=== PATIENT | female | born 1990 | race Caucasian/White ===

== ENCOUNTER 2019-01-17 05:27 | Emergency (ER) | payer OTHER, MEDICAID, SELFPAY ==
[2019-01-17 05:49] VITALS: BP 115/78; PULSE 89; RESP 16; TEMP 36.7; O2SAT 95; BMI 20.1
--- NOTE | 2019-01-17 06:00 | ED.EAR ---
HPI - Ear Problem General Chief complaint: Ear Stated complaint: LEFT EAR PAIN Time Seen by Provider: 01/17/19 05:52 Source: patient Mode of arrival: ambulatory Limitations: no limitations History of Present Illness HPI Narrative: the patient is a 28-year-old female who presents with left ear pain which started around midnight. She has upper respiratory symptoms ongoing for the last 2 weeks. She did have fever of is the 103 3 days ago. No fever since. His she actually feels like her symptoms are improving except for this left ear pain. She does have some phlegm cough but denies any shortness of breath or chest pain. No sore throat. MD Complaint: ear pain Location: left ear Duration: constant Severity: moderate Related Data Previous Rx's Medication Instructions Recorded dextroamphetamine-amphetamine 15 15 mg PO BID #60 tab 12/26/18 mg tablet dextroamphetamine-amphetamine ER 30 mg PO Q DAY #30 tab 12/26/18 30 mg 24hr capsule,extend release Allergies Allergy/AdvReac Type Severity Reaction Status Date / Time banana [BANANA] Allergy Intermediate swelling Verified 09/09/18 13:38 Penicillins Allergy Verified 09/09/18 13:38 Review of Systems Review of Systems ROS Unobtainable: All systems reviewed & are unremarkable except as noted in HPI and below Constitutional Denies chills, Denies fever(s), Denies lethargy and Denies weakness ENT Ears, Nose, Mouth, and Throat: Reports as per HPI Cardiovascular Denies chest pain, Denies irregular heart rhythm, Denies lightheadedness, Denies palpitations, Denies dyspnea, Denies dyspnea on exertion and Denies orthopnea Respiratory Reports chest congestion, Denies dyspnea and Denies dyspnea on exertion Gastrointestinal Gastrointestinal: Denies abdominal pain, Denies change in bowel habits, Denies diarrhea, Denies nausea and Denies vomiting Musculoskeletal Denies back pain, Denies muscle weakness, Denies numbness and Denies tingling Integumentary/Breasts Denies pruritus, Denies erythema, Denies rash and Denies wounds Neurologic Denies numbness, Denies tingling and Denies weakness Endocrine Denies palpitations [facility] Medical History ADHD (attention deficit hyperactivity disorder) (Chronic 2011) Anemia (Resolved 2015) Surgical History Status post tonsillectomy and adenoidectomy (Chronic) Family History Father No problems noted. Mother No problems noted. Social History marital status: household members: spouse and children lives independently: Yes leisure activities: exercise (yoga) Smoking Status: Never smoker alcohol intake: current substance use type: does not use Family History Father No problems noted. Mother No problems noted. Social History marital status: household members: spouse and children lives independently: Yes leisure activities: exercise (yoga) Smoking Status: Never smoker alcohol intake: current substance use type: does not use Exam Initial Vital Signs Initial Vital Signs: Vital Signs Temperature 98.0 F 01/17/19 05:49 Pulse Rate 89 01/17/19 05:49 Respiratory Rate 16 01/17/19 05:49 Blood Pressure 115/78 01/17/19 05:49 Pulse Oximetry 95 01/17/19 05:49 GENERAL: alert well-appearing young female no acute distress HEENT: Head atraumatic,EOMI, pupils reactive, face symmetric EARS: left ear erythematous tympanic membrane nonbulging no mastoid tenderness on right ears within normal limits PHARYNX:No erythema, no tonsillar exudate, no cervical lymphadenopathy CARDIOVASCULAR: Regular rate and rhythm without murmurs, rubs or gallops. RESPIRATORY: Breath sounds equal bilaterally, no wheezes rales or rhonchi. ABDOMEN: Soft, nontender. Normoactive bowel sounds all 4 quadrants. No guarding or rebound. EXTREMITIES: Normal range of motion, no clubbing or edema. Neurovascularly intact NEUROLOGICAL: Alert and oriented x4.Normal gait and speech. SKIN: Warm, dry, no laceration, no petechiae, no rashes or lesions. Course Vital Signs - 8 hr 01/17/19 05:49 Temperature 98.0 F Pulse Rate 89 Respiratory Rate 16 Blood Pressure 115/78 Pulse Oximetry 95 Medical Decision Making [facility] Narrative Medical decision making narrative: I did recommend antibiotics for patient. However she says she had 3 antibiotics of last year for a dental infection her intestine and body does not react well to them. For prefer not to have it. We did discuss conservative treatment and possible improvement in the next 2-3 days. Also complications include worsening pain and tympanic membrane rupture. Discharge Plan Departure Patient Disposition: Home Clinical Impression: Otitis media Qualifiers: Otitis media type: serous Chronicity: acute Laterality: left Recurrence: non-recurrent Qualified Code(s): H65.02 - Acute serous otitis media, left ear Discharge Date/Time: 01/17/19 06:05 Interventions: ED Discharge Assessment Last Done: 01/17/19 06:10 Activity Restrictions/Additional Instructions: *You have been diagnosed with Left otitis media *What to do: you may require antibiotics in the next 2-3 days if you continue to have worsening pain or fever. At this time pain management only with Tylenol or ibuprofen *Continue to take medications as directed Tylenol 650 mg every 4-6 hours if needed for pain Motrin 600 mg every 6-8 hours if needed for pain *Follow up with your primary care provider in 2-3 days *Return to ER if you should have worsening pain, fever more than 100.4?, ruptured tympanic membrane(blood from ear), or any new, worsening or concerning symptoms Prescriptions: No Action dextroamphetamine-amphetamine 30 mg capsule,extended release 24hr 30 mg PO Q DAY Qty: 30 RF: 0 dextroamphetamine-amphetamine 15 mg tablet 15 mg PO BID Qty: 60 RF: 0 Referrals: Suman Samayoa MD [Primary Care Provider] -
--- NOTE | 2019-01-17 06:07 | ED_ITS ---
HPI - Ear Problem General Chief complaint: Ear Stated complaint: LEFT EAR PAIN Time Seen by Provider: 01/17/19 05:52 Source: patient Mode of arrival: ambulatory Limitations: no limitations History of Present Illness HPI Narrative: the patient is a 28-year-old female who presents with left ear pain which started around midnight. She has upper respiratory symptoms ongoing for the last 2 weeks. She did have fever of is the 103 3 days ago. No fever since. His she actually feels like her symptoms are improving except for this left ear pain. She does have some phlegm cough but denies any shortness of breath or chest pain. No sore throat. MD Complaint: ear pain Location: left ear Duration: constant Severity: moderate Related Data Previous Rx's Medication Instructions Recorded dextroamphetamine-amphetamine 15 15 mg PO BID #60 tab 12/26/18 mg tablet dextroamphetamine-amphetamine ER 30 mg PO Q DAY #30 tab 12/26/18 30 mg 24hr capsule,extend release Allergies Allergy/AdvReac Type Severity Reaction Status Date / Time banana [BANANA] Allergy Intermediate swelling Verified 09/09/18 13:38 Penicillins Allergy Verified 09/09/18 13:38 Review of Systems Review of Systems ROS Unobtainable: All systems reviewed & are unremarkable except as noted in HPI and below Constitutional Denies chills, Denies fever(s), Denies lethargy and Denies weakness ENT Ears, Nose, Mouth, and Throat: Reports as per HPI Cardiovascular Denies chest pain, Denies irregular heart rhythm, Denies lightheadedness, Denies palpitations, Denies dyspnea, Denies dyspnea on exertion and Denies orthopnea Respiratory Reports chest congestion, Denies dyspnea and Denies dyspnea on exertion Gastrointestinal Gastrointestinal: Denies abdominal pain, Denies change in bowel habits, Denies diarrhea, Denies nausea and Denies vomiting Musculoskeletal Denies back pain, Denies muscle weakness, Denies numbness and Denies tingling Integumentary/Breasts Denies pruritus, Denies erythema, Denies rash and Denies wounds Neurologic Denies numbness, Denies tingling and Denies weakness Endocrine Denies palpitations [facility] Medical History ADHD (attention deficit hyperactivity disorder) (Chronic 2011) Anemia (Resolved 2015) Surgical History Status post tonsillectomy and adenoidectomy (Chronic) Family History Father No problems noted. Mother No problems noted. Social History marital status: household members: spouse and children lives independently: Yes leisure activities: exercise (yoga) Smoking Status: Never smoker alcohol intake: current substance use type: does not use Family History Father No problems noted. Mother No problems noted. Social History marital status: household members: spouse and children lives independently: Yes leisure activities: exercise (yoga) Smoking Status: Never smoker alcohol intake: current substance use type: does not use Exam Initial Vital Signs Initial Vital Signs: Vital Signs Temperature 98.0 F 01/17/19 05:49 Pulse Rate 89 01/17/19 05:49 Respiratory Rate 16 01/17/19 05:49 Blood Pressure 115/78 01/17/19 05:49 Pulse Oximetry 95 01/17/19 05:49 GENERAL: alert well-appearing young female no acute distress HEENT: Head atraumatic,EOMI, pupils reactive, face symmetric EARS: left ear erythematous tympanic membrane nonbulging no mastoid tenderness on right ears within normal limits PHARYNX:No erythema, no tonsillar exudate, no cervical lymphadenopathy CARDIOVASCULAR: Regular rate and rhythm without murmurs, rubs or gallops. RESPIRATORY: Breath sounds equal bilaterally, no wheezes rales or rhonchi. ABDOMEN: Soft, nontender. Normoactive bowel sounds all 4 quadrants. No guarding or rebound. EXTREMITIES: Normal range of motion, no clubbing or edema. Neurovascularly intact NEUROLOGICAL: Alert and oriented x4.Normal gait and speech. SKIN: Warm, dry, no laceration, no petechiae, no rashes or lesions. Course Vital Signs - 8 hr 01/17/19 05:49 Temperature 98.0 F Pulse Rate 89 Respiratory Rate 16 Blood Pressure 115/78 Pulse Oximetry 95 Medical Decision Making [facility] Narrative Medical decision making narrative: I did recommend antibiotics for patient. However she says she had 3 antibiotics of last year for a dental infection her intestine and body does not react well to them. For prefer not to have it. We did discuss conservative treatment and possible improvement in the next 2-3 days. Also complications include worsening pain and tympanic membrane rupture. Discharge Plan Departure Patient Disposition: Home Clinical Impression: Otitis media Qualifiers: Otitis media type: serous Chronicity: acute Laterality: left Recurrence: non- recurrent Qualified Code(s): H65.02 - Acute serous otitis media, left ear Discharge Date/Time: 01/17/19 06:05 Interventions: ED Discharge Assessment Last Done: 01/17/19 06:10 Activity Restrictions/Additional Instructions: *You have been diagnosed with Left otitis media *What to do: you may require antibiotics in the next 2-3 days if you continue to have worsening pain or fever. At this time pain management only with Tylenol or ibuprofen *Continue to take medications as directed Tylenol 650 mg every 4-6 hours if needed for pain Motrin 600 mg every 6-8 hours if needed for pain *Follow up with your primary care provider in 2-3 days *Return to ER if you should have worsening pain, fever more than 100.4?, ruptu red tympanic membrane(blood from ear), or any new, worsening or concerning symptoms Prescriptions: No Action dextroamphetamine-amphetamine 30 mg capsule,extended release 24hr 30 mg PO Q DAY Qty: 30 RF: 0 dextroamphetamine-amphetamine 15 mg tablet 15 mg PO BID Qty: 60 RF: 0 Referrals: Suman Samayoa MD [Primary Care Provider] -
== END 2019-01-17 06:05 | disposition home or self-care (01) ==
PROVIDERS: Emergency Provider Emergency Medicine; PCP Student in an Organized Health Care Education/Training Program
DX: H65.02 Acute serous otitis media, left ear (principal)
CPT/HCPCS: 99282